=== PATIENT | male | born 1955 | race African-American/Black ===

== ENCOUNTER 2018-10-21 00:33 | Emergency (ER) | payer OTHER ==
[~2018-10-21] VITALS: Ht 172.7 cm; Wt 68.0 kg
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
[2018-10-21 01:45] VITALS: BP 129/77
[2018-10-21 01:50] VITALS: BP 129/77
--- NOTE | 2018-10-21 01:50 | NUR ---
ER DISCHARGE NOTE: Patient is cleared to be discharged per ERMD, pt is aox4, on room air, with stable vital signs. pt was given dc and prescription instructions, pt was able to verbalize understanding, pt id band removed without complications. pt is able to ambulate with steady gait. pt took all belongings. pt d/c with [employer] under custody.
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
--- NOTE | 2018-10-21 13:06 | Diagnostic Imaging Report ---
Indication: Back pain Comparison: None Findings: 2 views of the thoracic spine were obtained. There is a mild scoliosis of the thoracic spine with the upper part of the thoracic spine slightly convex to the left. No obvious fracture or malalignment otherwise identified. IMPRESSION: Mild scoliosis
--- NOTE | 2018-10-21 13:07 | Diagnostic Imaging Report ---
Indication: Dyspnea Comparison: None A single view chest radiograph was obtained. Findings: There is a left apical pleural thickening and suggestion of mild linear parenchymal scar formation. No consolidative opacity identified. Similar findings to a lesser extent probably present in the right lung apex and right hilar region. Heart size is normal. The bones are unremarkable. IMPRESSION: Suspected scarring within the lungs are probably postinflammatory as described above.
== END 2018-10-21 01:50 ==
LOC: EDBD 00:33 → EMR 00:55
DX: S30.0XXA Contusion of lower back and pelvis, initial encounter (principal); X58.XXXA Exposure to other specified factors, initial encounter; Y92.9 Unspecified place or not applicable; J45.909 Unspecified asthma, uncomplicated; Z02.89 Encounter for other administrative examinations; M41.9 Scoliosis, unspecified
CPT/HCPCS: 71045; 72070; 99284

== ENCOUNTER 2019-11-15 17:25 | Emergency (ER) | payer SELFPAY ==
[~2019-11-15] VITALS: Ht 172.7 cm; Wt 72.6 kg
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
[2019-11-15 17:27] VITALS: BP 106/66
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
[2019-11-15] MEDS ORDERED: Tetanus/Diptheria/Pertussis IM ONE (18:00)
--- NOTE | 2019-11-15 18:33 | NUR ---
ED Nurse Note: Accompanied ERMD to place 3 desiree on pt right forearm.
--- NOTE | 2019-11-15 18:34 | NUR ---
ED Nurse Note: provided pt with meal and juice per request.
[2019-11-15 19:00] VITALS: BP 115/70
--- NOTE | 2019-11-15 19:01 | NUR ---
ER DISCHARGE NOTE: Patient is cleared to be discharged per ERMD, pt is aox4, on room air, with stable vital signs. pt was given dc and prescription instructions, pt was able to verbalize understanding, pt id band removed. pt is able to ambulate with steady gait. pt took all belongings.
== END 2019-11-15 19:01 | disposition home or self-care (01) ==
LOC: EDBD 17:25 → EMR 19:01
DX: S41.111A Laceration without foreign body of right upper arm, initial encounter (principal); Z23 Encounter for immunization; S71.132A Puncture wound without foreign body, left thigh, initial encounter; X99.0XXA Assault by sharp glass, initial encounter; Y92.9 Unspecified place or not applicable; F20.9 Schizophrenia, unspecified; F31.9 Bipolar disorder, unspecified
CPT/HCPCS: 90471; 90715; 99283